=== PATIENT | female | born 1995 | race African-American/Black ===

== ENCOUNTER 2018-11-03 13:29 | Emergency (ER) | payer SELFPAY ==
--- OUTSIDE RECORDS SUMMARY | 2018-11-03 13:31 | XMS REPORT | Clinical Summary ---
:1995 Author Organization [facility] Address [address] [place] [address] Care Team Providers Name Role Phone Asked, No Pcp Primary Care Provider Unavailable Allergies Active Allergy Reactions Severity Noted Date Comments Tramadol Anxiety Low 03/11/2016 Medications Medication Sig Dispensed Refills Start Date End Date Status ibuprofen Take 1 tablet 30 tablet 0 06/29/2018 07/29/2018 (ADVIL,MOTRIN) 400 MG (400 mg total) tablet by mouth every 6 (six) hours as needed for mild pain for up to 30 days. ondansetron (ZOFRAN) Take 1 tablet (4 8 tablet 0 06/29/2018 07/01/2018 4 MG tablet mg total) by mouth every 6 (six) hours for 2 days. Active Problems Problem Noted Date Strep pharyngitis 03/11/2016 Acute otitis externa of right ear 03/11/2016 Acute cystitis without hematuria 03/11/2016 Encounters Date Type Specialty Care Team Description 06/29/2018 Emergency Emergency Medicine [facility] Foot sprain, left , initial MD Lizzy encounter (Primary Dx) after 11/02/2017 Social History Tobacco Use Types Packs/Day Years Used Date Never Smoker Alcohol Use Drinks/Week oz/Week Comments Yes Sex Assigned at Date Recorded Not on file Job Start Date Occupation Industry Not on file Not on file Not on file Travel History Travel Start Travel End No recent travel history available. Last Filed Vital Signs Vital Sign Reading Time Taken Blood Pressure 118/68 06/29/2018 11:43 PM [employer] Pulse 80 06/29/2018 11:43 PM [employer] Temperature 36.6 C (97.9 F) 06/29/2018 11:43 PM [employer] Respiratory Rate 16 06/29/2018 11:43 PM [employer] Oxygen Saturation 100% 06/29/2018 11:43 PM [employer] Inhaled Oxygen Concentration - - Weight - - Height 160 cm (5' 3") 06/29/2018 7:56 PM CABLE [employer] Body Mass Index - - Plan of Treatment Health Maintenance Due Date Last Done Comments INFLUENZA VACCINE 01/08/2019 Procedures Procedure Name Priority Date/Time Associated Diagnosis Comments XR FOOT 3+ VW LEFT STAT 06/29/2018 8:33 PM Results for this CABLE COVERER procedure are in the results section. after 11/02/2017 Results XR Foot 3+ Vw Left (06/29/2018 8:33 PM CABLE COVERER) Specimen Narrative Performed At EXAMINATION:XR FOOT 3VW LEFT RADIANT CLINICAL HISTORY: 22 years FemaleL foot fx COMPARISON:None. IMPRESSION: There is no evidence of acute left foot fracture or dislocation. No radiopaque foreign bodies are identified. [facility]-[id number] Procedure Note Hm Interface, Radiology Results Incoming - 06/29/2018 9:04 PM CABLE C[employer]ER EXAMINATION: XR FOOT 3 VW LEFT CLINICAL HISTORY: 22 years Female L foot fx COMPARISON: None. IMPRESSION: There is no evidence of acute left foot fracture or dislocation. No radiopaque foreign bodies are identified. [facility]-[id number] Performing Organization Address City/State/Zipcode Phone Number [facility] [address] [place] [address] after 11/02/2017 Advance Directives Patient has advance care planning documents on file. For more information, please contact:[id number] [place] [address]
--- NOTE | 2018-11-03 14:36 | EDPHYS ---
Physician Documentation [facility] Name: Mckenna Stanley Age: 23 yrs Sex: Female : 1995 Arrival Date: 11/03/2018 Time: 13:30 Bed 14 Private MD: ED Physician Miriam Pruitt HPI: 11/03 14:33 This 23 yrs old Black Female presents to ER via EMS with complaints of chest pain. ma2 14:33 The patient or guardian reports chest pain that is located primarily in the substernal ma2 area, anterior chest wall, bilaterally. Associated signs and symptoms: Pertinent negatives: dizziness, lower extremity swelling, nausea, shortness of breath, vomiting. The chest pain is described as dull. Duration: The patient or guardian reports a single episode, that is still ongoing. Modifying factors: the symptoms are aggravated by deep breath, twisting torso. Severity of pain: At its worst the pain was mild in the emergency department the pain is unchanged. The patient has experienced similar episodes in the past. pain is constant for 2 days . 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 - Social history:: Smoking status: Patient uses tobacco products, denies chronic smoking, but will smoke occasionally, Patient uses alcohol, street drugs, Methamphetamine (Meth) Xanax, last used approx 2 weeks ago, Patient/guardian denies using alcohol, street drugs, The patient lives with family. - Ebola Screening: : No symptoms or risks identified at this time. - Family history:: not pertinent. ROS: 14:33 Constitutional: Negative for fever, chills, and weight loss, ENT: Negative for injury, ma2 pain, and discharge, Cardiovascular: Negative for chest pain, palpitations, and edema, Respiratory: Negative for shortness of breath, cough, wheezing, and pleuritic chest pain, Abdomen/GI: Negative for abdominal pain, nausea, diarrhea, and constipation, MS/Extremity: Negative for injury and deformity, Skin: Negative for injury, rash, and discoloration, Neuro: Negative for headache, weakness, numbness, tingling, and seizure, Psych: Negative for depression, anxiety, suicide ideation, homicidal ideation, and hallucinations, Allergy/Immunology: Negative for hives, rash, and allergies. Exam: 14:33 Constitutional: This is a well developed, well nourished patient who is awake, alert, ma2 and in no acute distress. Eyes: Pupils equal round and reactive to light, extra-ocular motions intact. Lids and lashes normal. Conjunctiva and sclera are non-icteric and not injected. Cornea within normal limits. Periorbital areas with no swelling, redness, or edema. ENT: Nares patent. No nasal discharge, no septal abnormalities noted. Tympanic membranes are normal and external auditory canals are clear. Oropharynx with no redness, swelling, or masses, exudates, or evidence of obstruction, uvula midline. Mucous membranes moist. Chest/axilla: Normal chest wall appearance and motion. Nontender with no deformity. No lesions are appreciated. Cardiovascular: Regular rate and rhythm with a normal S1 and S2. No gallops, murmurs, or rubs. Normal PMI, no JVD. No pulse deficits. Respiratory: Lungs have equal breath sounds bilaterally, clear to auscultation and percussion. No rales, rhonchi or wheezes noted. No increased work of breathing, no retractions or nasal flaring. Abdomen/GI: Soft, non-tender, with normal bowel sounds. No distension or tympany. No guarding or rebound. No evidence of tenderness throughout. Skin: Warm, dry with normal turgor. Normal color with no rashes, no lesions, and no evidence of cellulitis. MS/ Extremity: Pulses equal, no cyanosis. Neurovascular intact. Full, normal range of motion. Neuro: Awake and alert, GCS 15, oriented to person, place, time, and situation. Cranial nerves II-XII grossly intact. Motor strength 5/5 in all extremities. Sensory grossly intact. Cerebellar exam normal. Normal gait. Vital Signs: 13:45 BP 106 / 69; Pulse 93; Resp 18; Temp 98.2; Pulse Ox 100% ; Weight 59.42 kg (R); Height ph 5 ft. 3 in. (160.02 cm); Pain 7/10; 13:45 Body Mass Index 23.21 (59.42 kg, 160.02 cm) ph MDM: 13:32 Patient medically screened. ma2 14:33 Differential diagnosis: anxiety, chest wall pain, gastritis, gastroesophageal reflux ma2 disease (GERD). Data reviewed: vital signs, nurses notes, diagnostic data from outside facility. Counseling: I had a detailed discussion with the patient and/or guardian regarding: the historical points, exam findings, and any diagnostic results supporting the discharge/admit diagnosis, the presence of at least one elevated blood pressure reading (>120/80) during this emergency department visit, the need for outpatient follow up. Administered Medications: 14:55 Drug: Ativan 1 mg Route: PO; ph 15:05 Follow up: Response: No adverse reaction; Medication administered at discharge. ph 14:55 Drug: Zofran 4 mg Route: PO; ph 15:05 Follow up: Response: No adverse reaction; Medication administered at discharge. ph Disposition: 11/03/18 14:35 Discharged to Home. Impression: Chest pain on breathing. - Condition is Stable. - Discharge Instructions: Chest Wall Pain. - Prescriptions for buspirone 5 mg Oral tablet - take 1 tablet by ORAL route 3 times per day; 30 tablet. Zofran 4 mg Oral Tablet - take 1 tablet by ORAL route every 12 hours As needed; 20 tablet. Tylenol- Codeine #3 300-30 mg Oral Tablet - take 2 tablet by ORAL route every 6 hours As needed; 30 tablet. - Medication Reconciliation Form, Thank You Letter, Antibiotic Education, Prescription Opioid Use form. - Follow up: Private Physician; When: Tomorrow; Reason: Continuance of care. Signatures: Mesha Zuñiga RN RN Miriam Pruitt MD MD ma2 Corrections: (The following items were deleted from the chart) 15:06 14:35 11/03/2018 14:35 Discharged to Home. Impression: Chest pain on breathing. ph Condition is Stable. Prescriptions for buspirone 5 mg Oral tablet - take 1 tablet by ORAL route 3 times per day; 30 tablet, Zofran 4 mg Oral Tablet - take 1 tablet by ORAL route every 12 hours As needed; 20 tablet. and Forms are Medication Reconciliation Form, Thank You Letter, Antibiotic Education, Prescription Opioid Use. Follow up: Private Physician; When: Tomorrow; Reason: Continuance of care. ma2
--- NOTE | 2018-11-03 14:36 | ER ---
Nurse's Notes [facility] Name: Mckenna Stanley Age: 23 yrs Sex: Female : 1995 Arrival Date: 11/03/2018 Time: 13:30 Bed 14 Private MD: Diagnosis: Chest pain on breathing Presentation: 11/03 13:39 Presenting complaint: EMS states: Pt from [facility], been there for approx 2 weeks ph detoxing from meth and alcohol, began having R sided chest pain today, also c/o N/V and anxiety. Transition of care: patient was not received from another setting of care. Onset of symptoms was November 03, 2018. Risk Assessment: Do you want to hurt yourself or someone else? Patient reports no desire to harm self or others. Initial Sepsis Screen: Does the patient meet any 2 criteria? No. Patient's initial sepsis screen is negative. Does the patient have a suspected source of infection? No. Patient's initial sepsis screen is negative. Care prior to arrival: None. 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 - Social history:: Smoking status: Patient uses tobacco products, denies chronic smoking, but will smoke occasionally, Patient uses alcohol, street drugs, Methamphetamine (Meth) Xanax, last used approx 2 weeks ago, Patient/guardian denies using alcohol, street drugs, The patient lives with family. - Ebola Screening: : No symptoms or risks identified at this time. - Family history:: not pertinent. Screenin:47 Abuse screen: Denies threats or abuse. Denies injuries from another. Nutritional ph screening: No deficits noted. Tuberculosis screening: No symptoms or risk factors identified. Fall Risk None identified. Assessment: 13:47 General: Appears in no apparent distress. uncomfortable, slender, well groomed, ph Behavior is cooperative, appropriate for age, anxious, Denies fever, feeling ill. Pain: Complains of pain in anterior aspect of right upper chest and right breast Pain currently is 7 out of 10 on a pain scale. Neuro: Level of Consciousness is awake, alert, obeys commands, Oriented to person, place, time, situation. Cardiovascular: Reports chest pain, nausea, shortness of breath, vomiting, Capillary refill < 3 seconds in bilateral fingers Patient's skin is warm and dry. Respiratory: Airway is patent Respiratory effort is even, unlabored, Respiratory pattern is regular, symmetrical. GI: Reports nausea, vomiting, Patient currently denies abdominal pain. Derm: Skin is intact, is healthy with good turgor, Skin is pink, warm \T\ dry. Musculoskeletal: Circulation, motion, and sensation intact. Range of motion: intact in all extremities. 15:00 Reassessment: Patient appears in no apparent distress at this time. Patient and/or ph family updated on plan of care and expected duration. Pain level reassessed. Patient is alert, oriented x 3, equal unlabored respirations, skin warm/dry/pink. Pt d/c to [facility]. Vital Signs: 13:45 BP 106 / 69; Pulse 93; Resp 18; Temp 98.2; Pulse Ox 100% ; Weight 59.42 kg (R); Height ph 5 ft. 3 in. (160.02 cm); Pain 7/10; 13:45 Body Mass Index 23.21 (59.42 kg, 160.02 cm) ph ED Course: 13:30 Patient arrived in ED. ph 13:32 Miriam Pruitt MD is Attending Physician. ma2 13:39 Mesha Zuñiga, RN is Primary Nurse. ph 13:42 Triage completed. ph 13:47 Arm band placed on Patient placed in an exam room, on a stretcher, on sprinkler fitter, ph on pulse oximetry. 13:47 Patient has correct armband on for positive identification. Placed in gown. Bed in low ph position. Call light in reach. Side rails up X 1. decision unit rn on. Pulse ox on. NIBP on. Door closed. Noise minimized. Warm blanket given. Head of bed elevated. 13:54 EKG done, by ED staff, reviewed by Miriam Pruitt MD. [facility] 15:05 No provider procedures requiring assistance completed. Patient did not have IV access ph during this emergency room visit. Administered Medications: 14:55 Drug: Ativan 1 mg Route: PO; ph 15:05 Follow up: Response: No adverse reaction; Medication administered at discharge. ph 14:55 Drug: Zofran 4 mg Route: PO; ph 15:05 Follow up: Response: No adverse reaction; Medication administered at discharge. ph Outcome: 14:35 Discharge ordered by . [email or web address] 15:06 Patient left the ED. ph 15:06 Discharged to [facility] ph 15:06 Condition: good 15:06 Discharge instructions given to patient, Instructed on discharge instructions, follow up and referral plans. medication usage, Demonstrated understanding of instructions, follow-up care, medications, Prescriptions given X 2. Signatures: Mesha Zuñiga RN RN ph [place] [id number] Miriam Pruitt MD MD ma2
[2018-11-03] MEDS ORDERED: LORAZEPAM 1 MG TABLET ONE (14:56)
[2018-11-03] MEDS ORDERED: ONDANSETRON 4 MG (ODT) TAB ONE (14:58)
--- NOTE | 2018-11-04 07:59 | EKG ---
Test Date: 2018-11-03 Test Time: 13:46:59 [employer]: ILANA MEASUREMENT RESULTS: Intervals: Rate: 84 WI: 148 QRSD: 80 QT: 368 QTc: 434 [place]: P: 40 WI: 148 QRS: 62 T: 54 INTERPRETIVE STATEMENTS: Normal sinus rhythm with sinus arrhythmia Cannot rule out Anteroseptal infarct, age undetermined Abnormal ECG No previous ECG available for comparison Electronically Signed On 11-04-18 07:57:14 CDT by Forest Genao
== END 2018-11-03 15:06 | disposition home or self-care (01) ==
LOC: ER 13:29
DX: R07.1 Chest pain on breathing (principal); I10 Essential (primary) hypertension; F41.9 Anxiety disorder, unspecified; Z72.0 Tobacco use; Z88.5 Allergy status to narcotic agent
CPT/HCPCS: 93005; 99284